=== PATIENT | male | born 1995 | race Two or more races ===

== ENCOUNTER 2019-05-22 02:23 | Emergency (ER) | payer SELFPAY ==
[~2019-05-22] VITALS: Ht 175.3 cm; Wt 65.8 kg
[2019-05-22 02:27] VITALS: BP 137/82
--- NOTE | 2019-05-22 02:49 | NUR ---
AT BEDSIDE FOR EVAL.
--- NOTE | 2019-05-22 03:24 | NUR ---
Patient discharged to home in stable condition. Written and verbal after care instructions given. Patient verbalizes understanding of instruction.
== END 2019-05-22 03:25 | disposition home or self-care (01) ==
LOC: ER 02:26
DX: R50.9 Fever, unspecified (principal); Z20.828 Contact with and (suspected) exposure to other viral communicable diseases